=== PATIENT | male | born 1980 | race Two or more races ===

== ENCOUNTER 2022-12-06 07:57 | Outpatient (AMB) | payer OTHER, SELFPAY ==
--- NOTE | 2022-12-06 08:00 | MHC.OFFVIS ---
Intake Vital Signs 12/06/22 08:04 Height 5 ft 5 in Weight 139 lb 4 oz BMI 23.2 BP 90/70 Blood Pressure Location Lt brachial Position Sitting Pulse 67 Pulse Source Pulse Oximeter Pulse Oximetry (%) 97 Oxygen Delivery Method Room Air Intake Visit Reasons: ENP-Snoring - Confirmed Intake Note: For evaluation of [employer] Required: No Allergies No Known Allergies Allergy (Verified 12/06/22 08:00) HPI HPI Comments History of Present Illness Details 42 y/o male patient presents for new in-person visit for sleep and snoring consultation. Pt reports loud snoring, and his primary care recommended to r/o sleep apnea. He reports he usually sleep at late night, 11-12 am. He wakes up in the middle of night sometimes, but does not have difficulty to go back to sleep. Pt reports daytime tiredness. He has not evaluated by ENT yet. Sleep questionnaire: Have you ever been diagnosed with a sleep disorder? No. Have you ever had a sleep study in the past? No. Have you ever been treated for a sleep disorder? No. Do you take medications for a sleep disorder? No. Do you snore? Yes. Do you wake up gasping at night? No. Do you have episodes of apneas? No. If yes, are they witnessed? No. Do you have episodes of nocturnal chest pain or dyspnea? No. Do you have difficulty initiating sleep? No. Do you have difficulty maintaining sleep? No. Do you wake up tired? Yes, sometimes. Do you have headaches upon awakening? No. Do you wake up with dry mouth or throat? Yes, sometimes. Do you have GERD? No. Do you have nocturia? No. Do you have nocturnal leg cramps? No. Do you have symptoms of restless legs? No. Do you act out your dreams? No. Sleep hygiene questionnaire: What is your usual sleep routine? Usual bedtime is at 11-12 ; Usual wake up time is at 7 am. Do you take naps? No. Is your sleep environment cool, dark, and quiet? Yes. Do you exercise? Yes, bike, tennis. almost daily. Do you take caffeine or other stimulants? Tea in the morning and in the evening. Do you use electronics in bed? Yes, sometimes. What is your work schedule? 8-4:40 pm Hypersomnolence questionnaire: Do you have daytime tiredness or fatigue? No. Do you easily fall asleep when inactive? No. Have you ever had episodes of sudden weakness? No. Have you ever had episodes of sudden weakness associated with strong emotions? No. PFSH Surgical History (Updated 12/06/22 @ 08:03 by Marlena Rivera CMA) History of surgery on arm Family History (Updated 12/06/22 @ 08:04 by Marlena Rivera CMA) Father Cancer Social History (Updated 12/06/22 @ 08:04 by Marlena Rivera CMA) Alcohol intake: never Patient Tobacco Use Status: Never used Tobacco Review of Systems Const All systems reviewed & are unremarkable except as noted in HPI and below ENT Reports Normal hearing present Neuro Reports Normal hearing present and Reports Abnormal speech present Physical Exam Vital Signs: Last Vital Signs Pulse 67 12/06/22 08:04 BP 90/70 12/06/22 08:04 Pulse Ox 97 12/06/22 08:04 Oxygen Delivery Method Room Air 12/06/22 08:04 BMI result Body Mass Index 23.2 Const General: cooperative Nutritional Appearance: average body habitus Orientation/consciousness: patient oriented x3 HEENT Throat: Yes other (mallampati grade 4) Neck Neck: Yes full ROM and Yes supple Resp Effort & Inspection: normal respiratory effort and able to speak in complete sentences Neuro General: patient oriented x3 and gait normal Cranial nerves: Yes Bilaterally intact EOM present, Yes Normal facial strength present, Yes Midline tongue present, Yes Symmetric palate elevation present, Yes Normal hearing present, Yes Ability to bilaterally rotate head present and Yes Ability to bilaterally elevate shoulders present Cognition (Neuro): normal cognition Speech: Abnormal speech present Psych Appearance: grossly normal Mental Status: mental status grossly normal Speech and movement: Normal speech and movement present Affect: normal affect Attitude: cooperative Assessment & Plan Assessment & Plan (1) Daytime sleepiness: Code(s): R40.0 - Somnolence (2) Snoring: Code(s): R06.83 - Snoring Plan Pt is advised to undergo home sleep study to assess for sleep apnea. Will f/u with pt after study to discuss results and appropriate treatment options. May try melatonin 3 mg to promote sleep and stay sleep. Pt to call with any worsening concerns or questions. Orders: Orders RT home sleep study 12/06/22 R06.83 - Snoring, R40.0 - Somnolence Medications: New melatonin 3 mg PO BEDTIME 30 days PRN 30 tabs 3RF sleep Coding Level of Care Code New Pt Level 3 (45454) Diagnoses Daytime sleepiness R40.0 Snoring R06.83
[2022-12-06 08:04] VITALS: BP 90/70; PULSE 67; O2SAT 97; BMI 23.2
== END 2022-12-06 08:37 | disposition home or self-care (01) ==
PROVIDERS: PCP Hospitalist; Visit Provider Nurse Practitioner Family
DX: R40.0 Somnolence (principal); R06.83 Snoring
CPT/HCPCS: 99203

== ENCOUNTER → 2022-12-06 07:57 | Outpatient (BNVA) | payer OTHER, SELFPAY | PROVIDERS: PCP Hospitalist; Visit Provider Nurse Practitioner Family ==

== ENCOUNTER → 2023-01-22 12:38 | Outpatient (REF) | payer OTHER, SELFPAY | LOC: HO.SL 12:38 | PROVIDERS: PCP Hospitalist; Visit Provider Nurse Practitioner Family | DX: R40.0 Somnolence (principal); R06.83 Snoring | CPT/HCPCS: 95806 ==

== ENCOUNTER → 2023-01-22 13:27 | Outpatient (BNV) | payer OTHER, SELFPAY | PROVIDERS: PCP Hospitalist; Visit Provider Psychiatry & Neurology Neurology | DX: R06.83 Snoring (principal) | CPT/HCPCS: 95806 ==